=== PATIENT | female | born 1970 | race Hispanic/Latino ===

== ENCOUNTER 2021-08-08 17:35 | Emergency (ER) | payer MEDICAID ==
[~2021-08-08 17:35] MED LIST: BISA10SU22 RC; BISA5TAB12 PO; DOCU-282 PO; GABA-529 PO; LEVO750T46 PO; LORA-699 PO; LORA1TAB3 PO; MELA10CA2 PO; METO25TA6 PO; MIRALAX PO; PANT20TA PO; TRAM50TA4 PO; ZOLP10TA2 PO
[2021-08-08 19:30] VITALS: BP 148/89
[2021-08-08 20:10] LABS: APPEARANCE,URINE CLOUDY (CLEAR); BILIRUBIN,URINE NEGATIVE (NEGATIVE); COLOR,URINE YELLOW (YELLOW); GLUCOSE, URINE (UA) NEGATIVE (NEGATIVE); KETONES,URINE NEGATIVE (NEGATIVE); LEUKOCYTE ESTERASE ,URINE SMALL (NEGATIVE); NITRATE,URINE POSITIVE (NEGATIVE); OCCULT BLOOD,URINE LARGE (NEGATIVE); PROTEIN,URINE 30 mg/dL (NEGATIVE); UROBILINOGEN,URINE 0.2 mg/dL (0.2-1.0)
[2021-08-08] MEDS ORDERED: CEPH500B PO (20:18)
[2021-08-08 20:19] LABS: AMORPHOUS SEDIMENT,UR Few /LPF (None Seen); BACTERIA,URINE Moderate /HPF (None Seen); RBC,URINE 26-50 /HPF (0-1); SQUAMOUS EPITHELIAL CELL,UR Few /HPF (0-2)
[2021-08-08] MEDS ORDERED: CEFTRIAXONE 1G VIAL IM ONE (20:30)
[2021-08-08] MEDS ORDERED: LIDOCAINE HCL-MPF 1% 2ML VIAL ONE (20:33)
== END 2021-08-08 22:38 | disposition home or self-care (01) ==
LOC: EDH 17:35
DX: T83.038A Leakage of other urinary catheter, initial encounter (principal); N39.0 Urinary tract infection, site not specified; I10 Essential (primary) hypertension; K21.9 Gastro-esophageal reflux disease without esophagitis; F41.9 Anxiety disorder, unspecified; Z88.5 Allergy status to narcotic agent; Z79.899 Other long term (current) drug therapy; Y84.6 Urinary catheterization as the cause of abnormal reaction of the patient, or of later complication, without mention of misadventure at the time of the procedure; Y99.8 Other external cause status
CPT/HCPCS: 51702; 81001; 87077; 87088; 87186; 96372; 99284; J0696; J3490

== ENCOUNTER → 2022-10-27 | Outpatient (CLI) | payer MEDICAID ==
[~2022-10-27] MED LIST changes: -BISA10SU22 RC; -BISA5TAB12 PO; -GABA-529 PO; +GABA600T10 PO; +LEVO-70 PO; -LEVO750T46 PO; -LORA-699 PO; -LORA1TAB3 PO; -MELA10CA2 PO; -PANT20TA PO; +TRAZ-185 PO; -ZOLP10TA2 PO
== END | disposition home or self-care (01) ==
LOC: RAH 16:39
PROVIDERS: ATTEND Pain Medicine Interventional Pain Medicine
DX: M43.27 Fusion of spine, lumbosacral region (principal); M47.817 Spondylosis without myelopathy or radiculopathy, lumbosacral region; Z90.49 Acquired absence of other specified parts of digestive tract
CPT/HCPCS: 72100

== ENCOUNTER 2022-12-18 12:53 | Emergency (ER) | payer MEDICAID ==
[~2022-12-18] VITALS: Ht 147.3 cm; Wt 72.6 kg
[2022-12-18 14:10] VITALS: BP 122/61
[2022-12-18 16:06] LABS: APPEARANCE,URINE CLOUDY (CLEAR); BACTERIA,URINE FEW /HPF (None Seen); BILIRUBIN,URINE NEGATIVE (NEGATIVE); COLOR,URINE COLORLESS (YELLOW); GLUCOSE, URINE (UA) NEGATIVE (NEGATIVE); KETONES,URINE NEGATIVE (NEGATIVE); LEUKOCYTE ESTERASE ,URINE 250 Leu/uL (NEGATIVE); MUCUS,URINE RARE LPF (None Seen); NITRATE,URINE NEGATIVE (NEGATIVE); OCCULT BLOOD,URINE LARGE (NEGATIVE); OTHER CASTS, URINE 2 /LPF (None Seen); PH,URINE 5.5 (5.0-8.0); PROTEIN,URINE 70 mg/dL (NEGATIVE); RBC,URINE 51-100 /HPF (0-1); SQUAMOUS EPITHELIAL CELL,UR FEW /HPF (0-2); UROBILINOGEN,URINE 0.2 mg/dL (0.2-1.0); WBC,URINE 26-50 /HPF (0-1)
[2022-12-18] MEDS ORDERED: LEVO-70 PO (16:23)
[2022-12-18] MEDS ORDERED: LEVOFLOXACIN 500 MG TABLET PO SCH (16:30)
== END 2022-12-18 17:30 | disposition home or self-care (01) ==
LOC: EDH 12:53
DX: T83.511A Infection and inflammatory reaction due to indwelling urethral catheter, initial encounter (principal); N39.0 Urinary tract infection, site not specified; I10 Essential (primary) hypertension; K21.9 Gastro-esophageal reflux disease without esophagitis; M19.90 Unspecified osteoarthritis, unspecified site; F41.9 Anxiety disorder, unspecified; Z88.8 Allergy status to other drugs, medicaments and biological substances; Z79.899 Other long term (current) drug therapy
CPT/HCPCS: 81001; 87077; 87088; 87186

== ENCOUNTER 2022-12-31 23:20 | Emergency (ER) | payer MEDICAID ==
[~2022-12-31] VITALS: Ht 139.7 cm; Wt 81.6 kg
[2023-01-01 00:56] VITALS: BP 136/80; PULSE 84; RESP 16
[2023-01-04] MEDS ORDERED: NITR100C4 PO (19:18)
== END 2023-01-01 00:57 | disposition home or self-care (01) ==
LOC: EDH 23:20
DX: N31.9 Neuromuscular dysfunction of bladder, unspecified (principal); I10 Essential (primary) hypertension; G82.20 Paraplegia, unspecified; Z44.8 Encounter for fitting and adjustment of other external prosthetic devices; Z79.899 Other long term (current) drug therapy; Z88.1 Allergy status to other antibiotic agents; Z88.5 Allergy status to narcotic agent; Z98.890 Other specified postprocedural states

== ENCOUNTER 2024-04-29 06:43 | Day surgery (SDC) | payer MEDICAID ==
[2024-04-29] VITALS (10 sets, daily range): BP systolic 105–154; BP diastolic 51–75; PULSE 71–81; RESP 15–18; TEMP 96–97.8
[~2024-04-29 06:43] MED LIST changes: -DOCU-282 PO; +GABA-1405 PO; -GABA600T10 PO; +INSU100V45 SQ; -LEVO-70 PO; +METO-391 PO; -METO25TA6 PO; -MIRALAX PO; -TRAM50TA4 PO
[2024-04-29] MEDS: 0.9%NACL 1000ML 1,000 ML IV ONE (07:41)
[2024-04-29] MEDS ORDERED: proPOFol 10 MG/ML 20ML VIAL IV ONE (09:25)
--- NOTE | 2024-04-29 10:49 | NUR ---
Patient aox4. Denies c/o pain or discomfort. Voiced understanding to Colonoscopy precautions and follow up expectations. Chronic overton patent to gravity drainage. Dark gold clear urne output. PIV discontinued with catheter tip intact. Full and complete Discharge instructions given to Patient and Family. All questions answered. W/C to POV with Family to Home.
== END 2024-04-29 11:00 | disposition home or self-care (01) ==
LOC: ENDO 06:43 → DAH 06:43 → ENDO 11:00
PROVIDERS: ATTEND Internal Medicine Gastroenterology
DX: R19.5 Other fecal abnormalities (principal); D12.2 Benign neoplasm of ascending colon; K62.1 Rectal polyp; K57.30 Diverticulosis of large intestine without perforation or abscess without bleeding; I10 Essential (primary) hypertension; E78.00 Pure hypercholesterolemia, unspecified; F41.9 Anxiety disorder, unspecified; F32.A Depression, unspecified; M19.90 Unspecified osteoarthritis, unspecified site; K59.00 Constipation, unspecified; Z88.1 Allergy status to other antibiotic agents; Z88.5 Allergy status to narcotic agent; Z79.899 Other long term (current) drug therapy
CPT/HCPCS: 45380; 45385; 82948 ×2; J7030; J2704; A4620; A4215 ×2; A4223; A4657; A4222; A4221; A4663; A4606; J3490

== ENCOUNTER 2024-08-27 23:38 | Inpatient (IN) | payer MEDICAID ==
[~2024-08-27] VITALS: Ht 147.3 cm; Wt 88.2 kg
--- NOTE | 2024-08-27 23:57 | ERN ---
ED Note History of Present Illness Stated Complaint: SUPRAPUBIC CATH PROBLEMS Chief Complaint: Urinary Catheter Problems Time Seen by MD: 23:50 Dictation: This is a 54-year-old female with known history of achondroplasia spinal injury and paraplegia has had a suprapubic catheter for a long time. She started having problems where it was malfunctioning and yesterday she was instructed to go to [place] where her urologist is. They flush the suprapubic and basically asked her to keep flushing it and she returned to [place]. She experienced the same issues again this morning and she started feeling really pressure and lower abdominal discomfort and hence came to the ER for further evaluation No hematuria no fever chills or rigors. She denied hematuria or pyuria. She reports a lower abdominal pain as a as pressure and cramping. She has not had much urine output. Temperature 98 pulse 97 respirations 16 blood pressure 128/77 with a pulse oximetry of 98% on room air Her chronic medical problems include diabetes mellitus, hypertension, recurrent UTIs, indwelling suprapubic catheter, history of paraplegia and spinal injury, achondroplasia Allergies: Coded Allergies: ceftriaxone (Unverified Allergy, Unknown, SWELLING, 06/16/22) codeine (Unverified Allergy, Unknown, NAUSEA/VOMITING, 06/16/22) DIZZINESS Home Meds Reported Medications Insulin Lispro (Insulin Lispro) 100 Unit/Ml Vial, 20-25 UNIT SQ DAILY, VIAL 04/28/24 Metoprolol Succinate (Metoprolol Succinate) 50 Mg Tab.er.24h, 50 MG PO BID, TAB 04/28/24 Trazodone HCl (Trazodone HCl) 50 Mg Tablet, 50 MG PO HS for SLEEP, TAB 06/16/22 Gabapentin (Gabapentin) 600 Mg Tablet, 300 MG PO TID, TAB 06/16/22 Past Medical History Past Medical History: Diabetes-Type II, Hypertension, UTI, Other Additional Past Medical Hx: PARAPLEGIA, SPINAL INJURY achondroplasia Surgical History: Other Surgical History Other: BACK SURGERY Family History: Negative Social History: Negative RN Note Reviewed/Agreed w/PFSH: Yes Review of System Dictation Constitutional: Negative for fever,chills, and weight loss Eyes: Negative for injury, pain,redness, and discharge ENT: Negative for injury,pain or swelling Cardiovascular: Negative for chest pain, palpitations, and edema Respiratory: Negative for shortness of breath, cough, and wheezing, Abdomen/GI: Negative for abdominal pain, nausea, vomiting, diarrhea, and constipation Back: Negative for injury and pain : Negative for injury, bleeding and discharge hypogastric area pain and pr essure MS/Extremity: Negative for injury and deformity Skin: Negative for rash, and discoloration Neuro: Negative for headache, weakness, numbness, tingling, and seizure Psych: Negative for suicide ideation, homicidal ideation, and hallucinations Initial Vital Sign VS Vital Signs Date Time Temp Pulse Resp B/P (MAP) Pulse Ox O2 Delivery O2 Flow Rate FiO2 08/27/24 23:40 98.1 97 16 128/77 98 Room Air 0 Physical Exam Dictation General: awake, alert, NAD obese female Head/Face: Normocephalic, atraumatic Eyes: PERRL, EOMI, vision at baseline ENT: oral cavity clear, TMs clear, no signs of infection Neck: Trachea midline, supple, no nuchal rigidity Cardiovascular: RRR, normal S1/S2, No MRGs, no JVD Respiratory: CTAB, no respiratory distress, No rales or wheezes Abdomen: Soft, non-tender, non-distended, normal bowel sounds, no guarding or rebound. Suprapubic catheter in place with small amounts of yellow urine Skin: Warm, dry, normal turgor, no rash MS/Extremity: Pulses equal, no cyanosis, neurovascular intact, FROM Neuro: COAx4, GCS 15, strength 5/5, CN 2-12 intact, normal cerebellar exam, normal gait, Psych: Normal behavior, mood, and affect normal Extremities-trace edema without any palpable cords, Homans sign is negative Results (Laboratory/Radiology) Laboratory/Radiology Laboratory Tests Test 08/28/24 02:27 White Blood Count 9.4 K/uL (4.8-10.8) Red Blood Count 4.41 MIL/uL (4.00-5.50) Hemoglobin 12.6 g/dL (12.0-16.0) Hematocrit 38.5 % (36-48) Mean Corpuscular Volume 87.3 fL (79-99) Mean Corpuscular Hemoglobin 28.6 pg (27.0-33.0) Mean Corpuscular Hemoglobin Concent 32.7 g/dL (32.0-36.0) Red Cell Distribution Width 14.7 % (11.0-15.5) Platelet Count 207 K/uL (130-400) Mean Platelet Volume 10.7 fL (7.5-10.5) H Immature Granulocyte % (Auto) 0.2 % (0-1) Neutrophils (%) (Auto) 68.9 % (40.0-77.0) Lymphocytes (%) (Auto) 19.8 % (21.0-51.0) L Monocytes (%) (Auto) 7.3 % (3.0-13.0) Eosinophils (%) (Auto) 3.5 % (0.0-8.0) Basophils (%) (Auto) 0.3 % (0.0-5.0) Neutrophils # (Auto) 6.5 K/uL (1.8-7.7) Lymphocytes # (Auto) 1.9 K/uL (1.0-4.8) Monocytes # (Auto) 0.7 K/uL (0.1-1.0) Eosinophils # (Auto) 0.33 K/uL (0.00-0.70) Basophils # (Auto) 0.03 K/uL (0.00-0.20) Absolute Immature Granulocyte (auto 0.02 K/uL (0-1) Nucleated Red Blood Cells 0.0 % (0.0-0.19) Sodium Level 141 mmol/L (136-145) Potassium Level 3.8 mmol/L (3.5-5.1) Chloride Level 107 mmol/L (101-111) Carbon Dioxide Level 28 mmol/L (21-32) Blood Urea Nitrogen 18 mg/dL (7-18) Creatinine 0.7 mg/dL (0.5-1.0) Glomerular Filtration Rate Calc 103 mL/min (>90) Random Glucose 106 mg/dL (70-105) H Total Calcium 8.2 mg/dL (8.5-10.1) L Human Chorionic Gonadotropin, Quant 4 mIU/mL (0-5) Labs Reviewed?: Yes ED Course ED Course Orders Procedure Category Date Status Time Cbc With Differential LAB 08/28/24 Complete 01:24 Basic Metabolic Panel LAB 08/28/24 Complete 01:24 Hcg,Quantitative LAB 08/28/24 Complete 01:24 Urinalysis Profile LAB 08/28/24 Logged 01:24 Morphine 4mg Syg PHA 08/28/24 Complete (Morphine 4mg Syg) 01:30 0.9%Nacl 1000ml (Ns PHA 08/28/24 Complete 1000ml) 01:30 Ct Abdomen/Pelvis W/O CT 08/28/24 Taken Contrast 01:26 Edm Admit Bridge Order ADM 08/28/24 Transmitted 04:13 Current Medications Medications (Trade) Dose Ordered Sig/Elsy Route PRN Reason Start Time Stop Time Status Last Admin Dose Admin Morphine Sulfate (morPHINE 4MG SYG) 4 mg ONCE ONCE IVP 08/28/24 01:30 08/28/24 01:33 DC 08/28/24 01:36 Sodium Chloride 1,000 ml @ 0 mls/hr ONCE ONCE IV 08/28/24 01:30 08/28/24 01:31 DC 08/28/24 01:36 Vital Signs Date Time Temp Pulse Resp B/P (MAP) Pulse Ox O2 Delivery O2 Flow Rate FiO2 08/27/24 23:40 98.1 97 16 128/77 98 Room Air 0 We will perform diagnostic labs, advanced imaging and administer medications according to the patient's complaint. Once the results are available, will review and personally interpreted the labs to rule out any acute life-thre atening emergency the trach require immediate intervention and treatment. I will then re-evaluate the patient after treatment and diagnostic exams have return to determine whether the patient requires any further testing, can safely be discharged home or need further admission to hospital for additional treatment and evaluation. 1:00 a.m.-suprapubic catheter was flushed easily with small amount of saline. Not much of returned from the suprapubic catheter. ER was over flowing with no rooms or space available and hence there has been a delay in care 2:45 a.m.-CT scan of the abdomen and pelvis for verifying the positioning of the suprapubic catheter and any intrapelvic pathology was requested. CBC and other labs are also pending at this time 2:[address] scan of the abdomen and pelvis without contrast showed fecal impaction, urinary bladder is collapsed around the suprapubic catheter balloon, cholecystectomy clips, appendectomy suture, osteopenia with a L5-S1 fused interv ertebral cage and laminectomies from L1-S1 no perforation or intrapelvic fluid. 3:41 a.m. BNP 7 is within normal limits As patient has no urine output aggressive hydration is being done patient will also need disimpaction and bowel regimen. Recommended admission to the hospital and further management and close monitoring of electrolytes as well as Urology consultation to assist with suprapubic catheter. Patient is agreeable Patient accepted by vinicio mid-level provider for hospitalist group for further management Medical Decision Making MDM MDM: Differential diagnosis: Malfunctioning suprapubic catheter-possibilities include sediment, obstructive uropathy, malpositioning of the catheter, UTI Rationale: Tests considered and ordered secondary to shared decision making include: labs, ECG and radiology Previous outside records reviewed: Old ER visits. Risk of complication and/or morbidity or mortality of patient management: None Medications-Per medication reconciliation Need for hospitalization: Patient does meet criteria for hospitalization. Need for emergency major/minor surgery: No There are no social concerns with this patient. Prescription drug management Prescriptions will include symptomatic care Patient's prior external medical records from other ER visits were reviewed by me as indicated. Prior testing and results from previous visits were reviewed. Prior tests were taken into account with medical decision making and resource utilization, independent historian/historians were used to obtain complete medical history. I independently interpreted the test that were performed, results were reviewed by me and considered findings on radiology if ordered. Medical management and examination interpretation discussions were had by me with other qualified healthcare professionals as indicated for the patient's care. Problem List Problem List: (1) Malfunction of indwelling urinary catheter (2) Neurogenic bladder (3) Fecal impaction in rectum DX & DISP Disposition: Inpatient Decision to Admit Time: 03:42 Departure Impression: Primary Impression: Malfunction of indwelling urinary catheter Additional Impressions: Neurogenic bladder, Fecal impaction in rectum Condition: Stable Additional Instructions: Patient was informed of all the diagnostic labs and procedures conducted in the emergency room today and demonstrated understanding of the results. I personally reviewed and interpreted all the diagnostic exams performed in the ER today. The patient will be admitted to the hospital for further treatment and evaluation. Disposition-admit to facility Condition-stable/guarded Course-uncertain at this time Pain status-decreased Assessment-exam unchanged Admission Certification- I certify that the patients status is appropriate and is based on my best clinical judgment and the patient's condition as documented in the medical records Referrals: NEELAM VELASCO DO (PCP) SADE THURMAN MD Aug 27, 2024 23:57
[2024-08-28] MEDS: 0.9%NACL 1000ML 1,000 ML IV ONE (01:36)
[2024-08-28] MEDS: morPHINE 4 MG SYG IVP ONE (01:36)
--- NOTE | 2024-08-28 02:00 | NUR ---
taken to ct scan
[2024-08-28 02:43] LABS: BASOPHILS # (AUTO) 0.03 K/uL (0.00-0.20); BASOPHILS % (AUTO) 0.3 % (0.0-5.0); EOSINOPHILS # (AUTO) 0.33 K/uL (0.00-0.70); EOSINOPHILS % (AUTO) 3.5 % (0.0-8.0); HEMATOCRIT 38.5 % (36-48); IMMATURE GRANULOCYTE ABSOLUTE 0.02 K/uL (0-1); LYMPHOCYTES # (AUTO) 1.9 K/uL (1.0-4.8); LYMPHOCYTES % (AUTO) 19.8 % (21.0-51.0); MEAN CORPUSCULAR HEMOGLOBIN 28.6 pg (27.0-33.0); MEAN CORPUSCULAR HGB CONC 32.7 g/dL (32.0-36.0); MEAN CORPUSCULAR VOLUME 87.3 fL (79-99); MONOCYTES # (AUTO) 0.7 K/uL (0.1-1.0); MONOCYTES % (AUTO) 7.3 % (3.0-13.0); NEUTROPHILS # (AUTO) 6.5 K/uL (1.8-7.7); NEUTROPHILS % (AUTO) 68.9 % (40.0-77.0); PLATELET COUNT (AUTO) 207 K/uL (130-400); RED BLOOD CELL COUNT(AUTO) 4.41 MIL/uL (4.00-5.50); RED CELL DISTRIBUTION WIDTH 14.7 % (11.0-15.5); WHITE BLOOD COUNT (AUTO) 9.4 K/uL (4.8-10.8)
[2024-08-28 03:06] LABS: CREATININE 0.7 mg/dL (0.5-1.0); POTASSIUM 3.8 mmol/L (3.5-5.1)
--- NOTE | 2024-08-28 04:15 | HP ---
[facility] HISTORY AND PHYSICAL Date of Service: Aug 28, 2024 Time of Service: 04:15 PCP: Clint Velasquez HISTORY OF PRESENT ILLNESS: This is a 54-year-old female with past medical history of diabetes, hypertension urinary tract infection, achondroplasia, paraplegia and spinal injury was brought by EMS to the ED for complaints of malfunctioning suprapubic catheter which started Last Sunday 6 days ago and she went to see her Urologist in [place] on Sunday where her suprapubic cath was flushed and told her to keep flushing it and she came back home to [place] and upon arrival at home her Suprapubic catheter stopped draining again and she was voiding thru her urethra now and she also feels some pressure around her suprapubic area so she decided to come to the ED for evaluation.Upon arrival to the ER suprapubic catheter was flushed and not much returned came out as per ER report. Seen and examined patient in the ER awake,alert and coherent. Patient appears comfortable. Patient denies fever, chills, nausea, vomiting, chest pain and shortness of breaths. Suprapubic catheter draining yellow urine to the flow of gravity upon my evaluation. Latest vital signs temperature 97.9, heart rate 99, blood pressure 155/88 saturation 100% on room air. Labs: CBC is unremar kable. Glucose 106 total calcium 8.2 the rest of the chemistry is normal. There is a CT abdomen and pelvis that was done in the ER official result is still pending at this time. While in the ER patient received 1 L NS bolus and 4 mg of morphine IV. We will admit patient for further medical management. REVIEW OF SYSTEMS CONSTITUTIONAL: Denies fevers, chills, or night sweats. No unintentional weight loss reported. NEUROLOGICAL: Denies headache, amaurosis fugax, motor weakness, sensory deficit, vertigo/spinning sensation, gait abnormalities, or tremors. ENT: No hearing loss, otalgia, otorrhea, rhinitis, rhinorrhea, hoarseness, or sore throat. CARDIOVASCULAR: Denies any exertional angina, dyspnea on exertion, orthopnea, paroxysmal nocturnal dyspnea, palpitations, life-threatening arrhythmias, claudication. PULMONARY: Denies any shortness of breath, cough, phlegm/sputum, hemoptysis, pleuritic chest pain. SLEEP: Denies morning headaches, daytime somnolence or napping. Denies difficulty falling asleep, staying asleep, waking from sleep. Denies knowledge of snoring. GASTROINTESTINAL: Lower abdominal pain Denies any type of dysphagia to either liquids or solids. Denies nausea, vomiting, pyrosis, early satiety,diarrhea, constipation, or changes in stool consistency or caliber. Denies coffee-ground emesis, hematemesis, hematochezia, or melanotic stools. GENITOURINARY: Denies frequency, urgency, nocturia, hematuria or incontinence (Storage/Irritative symptoms.) straining to void, urinary intermittency or hesitancy, splitting of the voiding stream, terminal dribbling. ENDOCRINOLOGIC: Denies polyuria, polydipsia, polyphagia or heat/cold in tolerances. HEMATOLOGIC: Denies thrombophilia/previous clots, or coagulopathy/bleeding disorders. ONCOLOGIC: Denies personal history of malignancy. DERMATOLOGIC: Denies rashes or pruritus. PSYCHIATRIC: Denies any suicidal or homicidal ideation. Denies hallucinations. PAST MEDICAL HISTORY: [ diabetes, hypertension urinary tract infection, achondroplasia, paraplegia and spinal injury ] PAST SURGICAL HISTORY: [ Back surgery 2016, right knee surgery, tubal ligation ] PAST SOCIAL HISTORY: [ Patient lives with family. Patient is bed-bound. Patient denies alcohol tobacco and recreational drug use] FAMILY HISTORY: [ Hypertension, diabetes and Alzheimer's disease ] Coded Allergies: ceftriaxone (Unverified Allergy, Unknown, SWELLING, 06/16/22) codeine (Unverified Allergy, Unknown, NAUSEA/VOMITING, 06/16/22) DIZZINESS PHYSICAL EXAM GENERAL APPEARANCE: The patient is awake, alert, and oriented, in no acute cardiopulmonary distress. NEUROLOGICAL: Cranial nerves II-XII grossly intact. Motor is 5/5 in bilateral upper and lower extremities proximal to distal. No sensory deficits. HEENT: Face is symmetric. Pupils are equal and reactive. Extraocular movements are intact. NECK: Supple. No JVD. No thyromegaly. No submental, submandibular, pre- /postauricular, occipital or supraclavicular lymphadenopathy. CHEST: Normal chest expansion. No Telemetry. LUNGS: Absence of any rales, rhonchi or any wheezing. CARDIOVASCULAR: Regular. S1 and S2 normal. No appreciable rubs, murmurs or gallops. ABDOMEN: Soft, nontender, and nondistended. There is no rebound, voluntary guarding, or rigidity. : Deferred. Positive suprapubic catheter. EXTREMITIES: Non-edematous and not cyanotic. No clubbing. Good capillary refill. SKIN: No skin breakdown. Vital Sign (Last 24 Hours) 08/27/24 23:40 Temp 98.1 Pulse 97 Resp 16 B/P (MAP) 128/77 Pulse Ox 98 O2 Delivery Room Air O2 Flow Rate 0 LABS: Laboratory: Test 08/28/24 02:27 Range/Units White Blood Count 9.4 4.8-10.8 K/uL Red Blood Count 4.41 4.00-5.50 MIL/uL Hemoglobin 12.6 12.0-16.0 g/dL Hematocrit 38.5 36-48 % Mean Corpuscular Volume 87.3 79-99 fL Mean Corpuscular Hemoglobin 28.6 27.0-33.0 pg Mean Corpuscular Hemoglobin Concent 32.7 32.0-36.0 g/dL Red Cell Distribution Width 14.7 11.0-15.5 % Platelet Count 207 130-400 K/uL Mean Platelet Volume 10.7 H 7.5-10.5 fL Immature Granulocyte % (Auto) 0.2 0-1 % Neutrophils (%) (Auto) 68.9 40.0-77.0 % Lymphocytes (%) (Auto) 19.8 L 21.0-51.0 % Monocytes (%) (Auto) 7.3 3.0-13.0 % Eosinophils (%) (Auto) 3.5 0.0-8.0 % Basophils (%) (Auto) 0.3 0.0-5.0 % Neutrophils # (Auto) 6.5 1.8-7.7 K/uL Lymphocytes # (Auto) 1.9 1.0-4.8 K/uL Monocytes # (Auto) 0.7 0.1-1.0 K/uL Eosinophils # (Auto) 0.33 0.00-0.70 K/uL Basophils # (Auto) 0.03 0.00-0.20 K/uL Absolute Immature Granulocyte (auto 0.02 0-1 K/uL Nucleated Red Blood Cells 0.0 0.0-0.19 % Sodium Level 141 136-145 mmol/L Potassium Level 3.8 3.5-5.1 mmol/L Chloride Level 107 101-111 mmol/L Carbon Dioxide Level 28 21-32 mmol/L Blood Urea Nitrogen 18 7-18 mg/dL Creatinine 0.7 0.5-1.0 mg/dL Glomerular Filtration Rate Calc 103 >90 mL/min Random Glucose 106 H 70-105 mg/dL Total Calcium 8.2 L 8.5-10.1 mg/dL Human Chorionic Gonadotropin, Quant 4 0-5 mIU/mL DIAGNOSTICS / RADIOLOGY: [ ] ASSESSMENT: Suprapubic catheter malfunctioning POA Fecal impaction POA Neurogenic bladder POA Paraplegia POA Hypertension POA Obesity POA PLAN: We will admit patient in medical surgical We will start on GI soft diet We will start NS @ 75 ml / hr x1 bag and re evaluate We will start on Famotidine 20 mg IV bid for GI prophylaxis We will replace electrolytes as needed per protocol We will start on insulin sliding scale AC & HS with hypoglycemia protocol We will add prn medication for fever,pain, nausea and vomiting We will reconcile home meds once medlist available We will seek Urology consultation We will seek gastroenterology consultation We will request labs in am Further orders to follow depending on above results Case discussed with attending physician and came up with above treatment and plan of care. ADVANCED CARE PLANNING 1. Which of the following were discussed? Hospice Care - No Therapeutic options - Yes Advance Directives - No Other discussions - 2. Discussed with who? Patient 3. Voluntary nature of this service was explained to the patient? Yes 4. Amount of time spent - __19 5. Reviewed by Physician? (if this service was performed by NPP) Yes Patient seen and examined by me. Agree with note by [employer] SEE ADDITIONAL ORDERS PER CHART DISCUSSED WITH NURSING STAFF RAINE RODGERSP Aug 28, 2024 04:15
[2024-08-28] MEDS ORDERED: acetaMINOPHEN 325 MG TAB PO PRN (04:30)
[2024-08-28] MEDS: 0.9%NACL 1000ML 1,000 ML IV SCH (04:44)
--- NOTE | 2024-08-28 05:21 | NUR ---
REPORT CALLED TO DESIRAE HUBBARD
[2024-08-28 05:25] VITALS: BP 147/75; PULSE 99; RESP 18; TEMP 97.6
[2024-08-28 06:13] LABS: HEMOGLOBIN A1C 6.1 % (4.0-6.0)
[2024-08-28] MEDS: ondanSETRON 4MG INJ IV PRN (06:21)
[2024-08-28 06:23] LABS: BILIRUBIN,DIRECT 0.1 mg/dL (0.0-0.3); BILIRUBIN,TOTAL 0.3 mg/dL (0.2-1.0); MAGNESIUM 1.8 mg/dL (1.80-2.40)
--- NOTE | 2024-08-28 07:47 | CONS ---
GASTROENTEROLOGY CONSULTATION NOTE Date of Consultation: Aug 28, 2024 Time of Consultation: 07:47 History of Present Illness: Colonoscopy 04/2024 with colon polyps and diverticulosis. Review of Systems: CONSTITUTIONAL: No malaise or change in sensation of wellbeing. ENMT: No rhinorrhea, otorrhea, sinus pain, ear ache. CARDIOVASCULAR: No angina, palpitations, orthopnea or paroxysmal dyspnea. RESPIRATORY: No SOB. GASTROINTESTINAL: No abdominal pain, nausea, vomiting, diarrhea, hematemesis, melena or change in the patient's habitual bowel movements consistency/number. GENITOURINARY: No dysuria, hematuria or change in bladder continence. MUSCULOSKELETAL: No new muscle pain or decrease in muscular strength. No new joint swelling, redness or tenderness. SKIN: No new rash. Past Medical History: [ ] Past Surgical History: [ ] Past Social History: [ ] Family History: [ ] Coded Allergies: ceftriaxone (Unverified Allergy, Unknown, SWELLING, 06/16/22) codeine (Unverified Allergy, Unknown, NAUSEA/VOMITING, 06/16/22) DIZZINESS Physical Exam: GEN: Awake, alert, oriented in person, time and place, and in no acute distress. HEENT: No sinus tenderness. Tympanic membranes were not examined. No rhinorrhea. Oral pharyngeal mucosa is pink, moist and within normal limits. Neck is supple with no cervical lymphadenopathy, thyromegaly or JVD. CHEST: Inspection, palpation and percussion of the chest were unremarkable. Lung auscultation revealed normal breath sounds bilaterally. CARDIAC: PMI is within normal limits. Heart sounds are regular. Normal S1, S2. No gallop or murmur. ABD: Soft, non-tender and not distended. No peritoneal signs on palpation. No organomegaly. Normal bowel sounds. EXT: No cyanosis or clubbing. No edema. SKIN: Intact. No rashes. JOINTS: No evidence of synovitis or acute arthritis. NEURO: Alert and oriented to name, place and person. Cranial nerve examination is unremarkable. No focal motor deficits. Normal speech. Gait is normal. Strength is normal. Vital Sign (Last 24 Hours) 08/28/24 08/28/24 05:25 06:00 Temp 97.5 Pulse 99 Resp 18 B/P (MAP) 147/75 Pulse Ox 96 O2 Delivery Room Air* O2 Flow Rate 0 FiO2 21 Laboratory: [ ] Laboratory: Test 08/28/24 02:27 Range/Units White Blood Count 9.4 4.8-10.8 K/uL Red Blood Count 4.41 4.00-5.50 MIL/uL Hemoglobin 12.6 12.0-16.0 g/dL Hematocrit 38.5 36-48 % Mean Corpuscular Volume 87.3 79-99 fL Mean Corpuscular Hemoglobin 28.6 27.0-33.0 pg Mean Corpuscular Hemoglobin Concent 32.7 32.0-36.0 g/dL Red Cell Distribution Width 14.7 11.0-15.5 % Platelet Count 207 130-400 K/uL Mean Platelet Volume 10.7 H 7.5-10.5 fL Immature Granulocyte % (Auto) 0.2 0-1 % Neutrophils (%) (Auto) 68.9 40.0-77.0 % Lymphocytes (%) (Auto) 19.8 L 21.0-51.0 % Monocytes (%) (Auto) 7.3 3.0-13.0 % Eosinophils (%) (Auto) 3.5 0.0-8.0 % Basophils (%) (Auto) 0.3 0.0-5.0 % Neutrophils # (Auto) 6.5 1.8-7.7 K/uL Lymphocytes # (Auto) 1.9 1.0-4.8 K/uL Monocytes # (Auto) 0.7 0.1-1.0 K/uL Eosinophils # (Auto) 0.33 0.00-0.70 K/uL Basophils # (Auto) 0.03 0.00-0.20 K/uL Absolute Immature Granulocyte (auto 0.02 0-1 K/uL Nucleated Red Blood Cells 0.0 0.0-0.19 % Sodium Level 141 136-145 mmol/L Potassium Level 3.8 3.5-5.1 mmol/L Chloride Level 107 101-111 mmol/L Carbon Dioxide Level 28 21-32 mmol/L Blood Urea Nitrogen 18 7-18 mg/dL Creatinine 0.7 0.5-1.0 mg/dL Glomerular Filtration Rate Calc 103 >90 mL/min Random Glucose 106 H 70-105 mg/dL Hemoglobin A1c 6.1 H 4.0-6.0 % Estimated Average Glucose (eAG) 128 H 70-126 mg/dL Total Calcium 8.2 L 8.5-10.1 mg/dL Magnesium Level 1.80 1.80-2.40 mg/dL Total Bilirubin 0.3 0.2-1.0 mg/dL Direct Bilirubin 0.1 0.0-0.3 mg/dL Aspartate Amino Transf (AST/SGOT) 62 H 10-37 U/L Alanine Aminotransferase (ALT/SGPT) 44 12-78 U/L Alkaline Phosphatase 120 50-136 U/L Total Protein 7.0 6.0-8.3 g/dL Albumin 3.0 L 3.5-5.0 g/dL Human Chorionic Gonadotropin, Quant 4 0-5 mIU/mL Current Medications Medications (Trade) Dose Ordered Sig/Elsy Route PRN Reason Start Time Stop Time Status Last Admin Dose Admin Acetaminophen (TYLenol 325MG TAB) 650 mg Q4H PRN PO MILD PAIN (1-3) 08/28/24 04:30 09/27/24 04:29 Acetaminophen (TYLenol 325MG TAB) 650 mg Q6H PRN PO TEMPERATURE GREATER THAN 101.5 08/28/24 04:30 09/27/24 04:29 Famotidine (Pepcid 20mg Vial) 20 mg BID IV 08/28/24 09:00 09/27/24 08:59 Ondansetron HCl (zoFRAN 4MG INJ) 4 mg Q6H PRN IV NAUSEA/VOMITING 08/28/24 04:30 09/27/24 04:29 08/28/24 06:21 4 MG Sodium Chloride 1,000 ml @ 75 mls/hr [id number] IV 08/28/24 04:30 09/27/24 04:29 08/28/24 04:44 75 MLS/HR Diagnostics / Radiology: [COPY/PASTE HERE IF NO REPORTS PLEASE DELETE SECTION] Assessment: [ ] Plan: [ ] BROOKLYNN MUIR [facility] Aug 28, 2024 07:47
[2024-08-28 08:00] VITALS: BP 139/87; PULSE 104; RESP 18; TEMP 97.9; O2SAT 95
[2024-08-28] MEDS: FAMOTIDINE 20MG VIAL IV SCH (08:17)
--- NOTE | 2024-08-28 08:25 | HMCIMG ---
Exam Type: CT ABDOMEN/PELVIS W/O CONTRAST Clinical Information: supra public in place. malfunctioning lower abdominal pain Comparison: None CT Dose Index (CTDI): 10.20 mGy Dose Length Product (DLP): 530.00 total mGy-cm PROTOCOL: Routine noncontrast helical scanning of the abdomen and pelvis was performed at 5mm collimation. Findings: No evidence of nephro or ureterolithiasis is found. No hydronephrosis or ureteral dilatation is seen. The lung bases are clear. The stomach is unremarkable. It shows no wall thickening. No gross ulceration is seen. It is not overly distended. There are no surrounding inflammatory changes. No wall lesions are identified to suggest cancer. The spleen is unremarkable. It is not enlarged. The pancreas shows normal anatomy. It is not fatty replaced. It shows no lesions. The pancreatic duct is not dilated. The gallbladder is unremarkable. It shows no cholelithiasis. The gallbladder wall is normal in thickness. There is no pericholecystic fluid. The is no acute or chronic inflammation noted. The adrenal glands are unremarkable. There is no enlargement. No lesions are noted. The liver is unremarkable. It shows no focal masses. The appendix is not visualized. The small bowel is unremarkable. There is no evidence of dilatation to suggest obstruction. No evidence of adynamic ileus is seen. There is no small bowel wall thickening to suggest enteritis. Abundant fecal matter is noted throughout the colon consistent with constipation. The urinary bladder is unremarkable. There is no wall thickening to suggest tumor or inflammation. There are no intraluminal calculi. There are no diverticula. There is no evidence of chronic bladder outlet obstruction. There is no evidence of urinary bladder distention to suggest urinary retention. Ryan catheter noted within the urinary bladder. The other pelvic structures are unremarkable. Postoperative changes of the lumbosacral spine. IMPRESSION: Constipation. Other findings as described. This study was performed using dose reduction techniques to include automated exposure control and/or adjustment of the mA and/or kV according to patient size.
[2024-08-28] MEDS ORDERED: LISI1TAB53 PO (09:54)
[2024-08-28] MEDS ORDERED: LACT10SO76 PO (09:54)
[2024-08-28] MEDS ORDERED: OXYB5TAB20 PO (09:54)
[2024-08-28] MEDS ORDERED: FERS325 PO (09:54)
[2024-08-28 10:44] LABS: INR 0.94 (0.85-1.15)
[2024-08-28 10:46] LABS: PARTIAL THROMBOPLASTIN TIME 27.8 SEC (26.3-35.5)
[2024-08-28] MEDS: ketOROlac 15MG/ML VIAL (15MG/ML) IV PRN (11:12)
[2024-08-28] MEDS: doCUSate SODIUM 100 MG CAP PO SCH (11:12)
[2024-08-28] MEDS: LACTULOSE 20 GM/30 ML UDCUP PO PRN (11:12)
[2024-08-28] MEDS: metOPROLol sucCINATE 50 MG TAB.SR.24H PO ONE (11:14)
[2024-08-28 12:00] VITALS: BP 136/87; PULSE 90; RESP 18; TEMP 98
[2024-08-28 12:42] LABS: APPEARANCE,URINE CLEAR (CLEAR); BILIRUBIN,URINE NEGATIVE (NEGATIVE); COLOR,URINE COLORLESS (YELLOW); GLUCOSE, URINE (UA) NEGATIVE (NEGATIVE); KETONES,URINE NEGATIVE (NEGATIVE); LEUKOCYTE ESTERASE ,URINE 250 Leu/uL (NEGATIVE); NITRATE,URINE NEGATIVE (NEGATIVE); OCCULT BLOOD,URINE MODERATE (NEGATIVE); PROTEIN,URINE 10 mg/dL (NEGATIVE); UROBILINOGEN,URINE 0.2 mg/dL (0.2-1.0)
[2024-08-28 12:47] LABS: ADD UA MICROSCOPIC YES
[2024-08-28 12:48] LABS: BACTERIA,URINE RARE /HPF (None Seen); MUCUS,URINE RARE LPF (None Seen); SQUAMOUS EPITHELIAL CELL,UR RARE /HPF (0-2); WBC,URINE 26-50 /HPF (0-1); YEAST,URINE BUDDING FEW /HPF (None Seen)
--- NOTE | 2024-08-28 13:18 | NUR ---
D/C PLAN CM spoke to patient regarding d/c planning. Patient reports she lives with friend Christine. States she has provider services to assist with ADLs but unable to recall how many hours. Denies having any home health. States she has a wheelchair and shower chair at home. Plan is to return home to same setting. No needs verbalized. CM to f/u. Addendum: 08/28/24 at 1319 by CHENTE MORALES CM Amended: Links added.
[2024-08-28] MEDS: GABAPENTIN 300 MG CAPSULE PO SCH (14:00)
[2024-08-28] MEDS ORDERED: GABA-529 PO (14:38)
[2024-08-28] MEDS ORDERED: cefTRIAXone 1G VIAL IVPB SCH (15:00)
[2024-08-28 16:00] VITALS: BP 146/78; PULSE 86; RESP 18; TEMP 98.2
[2024-08-28] MEDS: levoFLOXacin 500 MG/D5W 100 ML IV SCH (16:26)
--- NOTE | 2024-08-28 17:59 | NUR ---
FLEET ENEMA ADMINISTERED THE FLEET ENEMA AT 1400. AT 1430 PT HAD LARGE BOWEL MOVEMENT AND FLATUS. PT'S REPORTS PAIN RELIEF AND REDUCED BLOATING.
[2024-08-28 19:00] VITALS: BP 161/74; PULSE 81; RESP 20; TEMP 98
[2024-08-28] MEDS: metOPROLol sucCINATE 50 MG TAB.SR.24H PO SCH (19:46)
[2024-08-28 20:00] VITALS: O2SAT 95
[2024-08-28] MEDS: acetaMINOPHEN 325 MG TAB PO PRN (20:27)
[2024-08-28] MEDS: trAZOdone HCL 50 MG TAB PO SCH (20:29)
--- NOTE | 2024-08-28 21:22 | CONS ---
CONSULTATION NOTE Date of Service: Aug 28, 2024 Reason for Consultation: Mal functioning suprapubic catheter Requesting Physician: Hospitalist [facility] HISTORY OF PRESENT ILLNESS: 54-year-old female with past medical history of diabetes, hypertension urinary tract infection, achondroplasia, paraplegia and spinal injury was brought by EMS to the ED for complaints of malfunctioning suprapubic catheter which started Last Sunday 6 days ago. She has neurogenic bladder, history of achondroplasia but underwent a spinal surgery which left her almost paralyzed/paraplegic. She states she can not walk. There was a time in the past she had a suprapubic catheter for bladder management. At some point that was removed. It is not clear to me how she was being managed bladder pascual after that but recently underwent placement of a new suprapubic catheter August 20, 2024. It was performed at [facility] in [place]. She was discharged back to [place]. She started experiencing difficulty and problems with the catheter noticing that she was getting very wet in her diapers. He drove back over there went to the ER it was flushed out and sent back to [place]. She continued to have the same problems and she came to [facility] Emergency Department. A CT scan that was obtained on admission does show that the catheter was kind of curved within the lumen of the bladder. In addition to that the catheter was tunneled and placed in the suprapubic location whereby is being kinked and compressed by her abdominal pannus. Since admission, the catheter has been draining much better. REVIEW OF SYSTEMS CONSTITUTIONAL: Denies fever, chills, or fatigue. HEAD/FACE: No signs of trauma. EENT: Denies eye pain, blurred vision, double vision, or light sensitivity. RESPIRATORY: Denies shortness of breath, cough, wheezing CARDIOVASCULAR: Denies chest pain, palpitation, syncope GASTROINTESTINAL/ABDOMINAL: Denies abdominal pain, constipation, diarrhea, nausea or vomiting GENITOURINARY: Denies dysuria or hematuria. MUSCULOSKELETAL: Denies joint pain, tenderness, or trauma. INTEGUMENTARY: Denies rash or itchiness NEUROLOGICAL/PSYCH: Denies anxiety, depression, heat or cold intolerance. PAST MEDICAL HISTORY: Achondroplasia Paraplegia Neurogenic bladder PAST SURGICAL HISTORY: Spinal surgery Suprapubic catheter insertion PAST SOCIAL HISTORY: Denies ethanol, drugs and smoking FAMILY HISTORY: Family history is noncontributory to presenting complaint Coded Allergies: ceftriaxone (Unverified Allergy, Unknown, SWELLING, 06/16/22) codeine (Unverified Allergy, Unknown, NAUSEA/VOMITING, 06/16/22) DIZZINESS PHYSICAL EXAM EYES: Anicteric. Pupils equal and reactive. HENT: No oral thrush seen, moist Oral mucosa NECK: Supple, no JVD or thyromegaly. LUNGS: Good air entry. No rales, no rhonchi. CARDIOVASCULAR: S1, S2 regular. No murmur heard. ABDOMEN: Soft, non tender, bowel sounds present, no organomegaly, SP puncture site in the inferior abdomen is clean dry and intact. CENTRAL NERVOUS SYSTEM: Awake, alert, oriented x 3. No focal deficits. SKIN: No rashes, no swelling. LYMPHATICS: No peripheral lymphadenopathy MUSCULOSKELETAL: No joint swelling, erythema or tenderness. EXTREMITIES: No cyanosis or clubbing BACK: No deformity, no pressure ulcer. GENITOURINARY: Genitalia is normal Vital Sign (Last 24 Hours) 08/28/24 08/28/24 08:00 19:00 Temp 98.1 Pulse 81 Resp 20 B/P (MAP) 161/74 Pulse Ox 96 O2 Delivery Room Air O2 Flow Rate 0 FiO2 21 LABS: Laboratory: Test 08/28/24 11:27 08/28/24 02:27 Range/Units Urine Color COLORLESS YELLOW Urine Appearance CLEAR CLEAR Urine pH 6.0 5.0-8.0 Urine Specific [place] 1.011 1.001-1.031 Urine Protein 10 H NEGATIVE mg/dL Urine Glucose (UA) NEGATIVE NEGATIVE mg/dL Urine Ketones NEGATIVE NEGATIVE mg/dL Urine Occult Blood MODERATE H NEGATIVE Urine Nitrate NEGATIVE NEGATIVE Urine Bilirubin NEGATIVE NEGATIVE mg/dL Urine Urobilinogen 0.2 0.2-1.0 mg/dL Urine Leukocyte Esterase 250 H NEGATIVE May/uL Urine RBC 11-25 H 0-1 /HPF Urine WBC 26-50 H 0-1 /HPF Urine Squamous Epithelial Cells RARE 0-2 /HPF Urine Bacteria RARE None Seen /HPF Urine Yeast FEW None Seen /HPF White Blood Count 9.4 4.8-10.8 K/uL Red Blood Count 4.41 4.00-5.50 MIL/uL Hemoglobin 12.6 12.0-16.0 g/dL Hematocrit 38.5 36-48 % Mean Corpuscular Volume 87.3 79-99 fL Mean Corpuscular Hemoglobin 28.6 27.0-33.0 pg Mean Corpuscular Hemoglobin Concent 32.7 32.0-36.0 g/dL Red Cell Distribution Width 14.7 11.0-15.5 % Platelet Count 207 130-400 K/uL Mean Platelet Volume 10.7 H 7.5-10.5 fL Immature Granulocyte % (Auto) 0.2 0-1 % Neutrophils (%) (Auto) 68.9 40.0-77.0 % Lymphocytes (%) (Auto) 19.8 L 21.0-51.0 % Monocytes (%) (Auto) 7.3 3.0-13.0 % Eosinophils (%) (Auto) 3.5 0.0-8.0 % Basophils (%) (Auto) 0.3 0.0-5.0 % Neutrophils # (Auto) 6.5 1.8-7.7 K/uL Lymphocytes # (Auto) 1.9 1.0-4.8 K/uL Monocytes # (Auto) 0.7 0.1-1.0 K/uL Eosinophils # (Auto) 0.33 0.00-0.70 K/uL Basophils # (Auto) 0.03 0.00-0.20 K/uL Absolute Immature Granulocyte (auto 0.02 0-1 K/uL Nucleated Red Blood Cells 0.0 0.0-0.19 % Prothrombin Time 10.0 9.6-11.6 SEC Prothromb Time International Ratio 0.94 0.85-1.15 Activated Partial Thromboplast Time 27.8 26.3-35.5 SEC Sodium Level 141 136-145 mmol/L Potassium Level 3.8 3.5-5.1 mmol/L Chloride Level 107 101-111 mmol/L Carbon Dioxide Level 28 21-32 mmol/L Blood Urea Nitrogen 18 7-18 mg/dL Creatinine 0.7 0.5-1.0 mg/dL Glomerular Filtration Rate Calc 103 >90 mL/min Random Glucose 106 H 70-105 mg/dL Hemoglobin A1c 6.1 H 4.0-6.0 % Estimated Average Glucose (eAG) 128 H 70-126 mg/dL Total Calcium 8.2 L 8.5-10.1 mg/dL Magnesium Level 1.80 1.80-2.40 mg/dL Total Bilirubin 0.3 0.2-1.0 mg/dL Direct Bilirubin 0.1 0.0-0.3 mg/dL Aspartate Amino Transf (AST/SGOT) 62 H 10-37 U/L Alanine Aminotransferase (ALT/SGPT) 44 12-78 U/L Alkaline Phosphatase 120 50-136 U/L Total Protein 7.0 6.0-8.3 g/dL Albumin 3.0 L 3.5-5.0 g/dL Human Chorionic Gonadotropin, Quant 4 0-5 mIU/mL DIAGNOSTICS / RADIOLOGY: CT abdomen and pelvis without contrast shows the placement of a silicone catheter, there is a curvature of the tubing of the catheter intraluminally within the bladder. There was also another curvature of the catheter at the site of exit secondary to compression from abdominal pannus. ASSESSMENT: 54-year-old female with a history of achondroplasia and currently paraplegic, unable to ambulate without a wheelchair, has neurogenic bladder, underwent placement a FA puncture suprapubic catheter in [place] August 20, 2024 PLAN: 1.There are many technical issues with this catheter. It is kinked externally and internally. All of those can be straightened out by simply adjusting and pull in the catheter so that the balloon hugs the superior bladder wall. 2. Patient would need to learn how to flush the catheter as the helps with these issues 3. Discussed with patient expectations from a suprapubic catheter. She has had it before. This is not a natural way of bladder should drain so it is subject to technical issues and drainage troubleshooting. 60 minutes spent to complete a consult, more than half of the time spent in counseling and coordination of care and addressing all questions and concerns post by patient and family member present at bedside. Some time was spent d iscussing with members of her care team. The rest of the time was spent reviewing medical records past and present as well as imaging and laboratory data from this admission. MONSE VARNER MD Aug 28, 2024 21:22
[2024-08-29 00:39] VITALS: BP 96/50; PULSE 80; RESP 20; TEMP 97.9
[2024-08-29 04:19] VITALS: BP 103/56; PULSE 72; RESP 20; TEMP 97.8
[2024-08-29 05:50] LABS: BASOPHILS # (AUTO) 0.05 K/uL (0.00-0.20); BASOPHILS % (AUTO) 0.7 % (0.0-5.0); EOSINOPHILS # (AUTO) 0.38 K/uL (0.00-0.70); HEMATOCRIT 36.4 % (36-48); IMMATURE GRANULOCYTE ABSOLUTE 0.02 K/uL (0-1); LYMPHOCYTES # (AUTO) 1.5 K/uL (1.0-4.8); LYMPHOCYTES % (AUTO) 19.1 % (21.0-51.0); MEAN CORPUSCULAR HGB CONC 31.9 g/dL (32.0-36.0); MEAN CORPUSCULAR VOLUME 87.7 fL (79-99); MONOCYTES # (AUTO) 0.6 K/uL (0.1-1.0); MONOCYTES % (AUTO) 7.7 % (3.0-13.0); NEUTROPHILS # (AUTO) 5.2 K/uL (1.8-7.7); NEUTROPHILS % (AUTO) 67.2 % (40.0-77.0); PLATELET COUNT (AUTO) 190 K/uL (130-400); RED BLOOD CELL COUNT(AUTO) 4.15 MIL/uL (4.00-5.50); RED CELL DISTRIBUTION WIDTH 14.6 % (11.0-15.5); WHITE BLOOD COUNT (AUTO) 7.7 K/uL (4.8-10.8)
[2024-08-29 06:06] LABS: CREATININE 0.7 mg/dL (0.5-1.0); POTASSIUM 4.2 mmol/L (3.5-5.1)
[2024-08-29 08:00] VITALS: BP 140/76; PULSE 80; RESP 18; TEMP 97.9
[2024-08-29 08:07] VITALS: O2SAT 98
[2024-08-29] MEDS: BisaCODYL 10 MG SUPP.RECT RC SCH (08:07)
--- NOTE | 2024-08-29 09:22 | PN ---
GASTROENTEROLOGY PROGRESS NOTE Date of Visit: Aug 29, 2024 Time of Visit: 09:22 Events / Notes: [ ] Review of Systems: CONSTITUTIONAL: No malaise or change in sensation of wellbeing. ENMT: No rhinorrhea, otorrhea, sinus pain, ear ache. CARDIOVASCULAR: No angina, palpitations, orthopnea or paroxysmal dyspnea. RESPIRATORY: No SOB. GASTROINTESTINAL: No abdominal pain, nausea, vomiting, diarrhea, hematemesis, melena or change in the patient's habitual bowel movements consistency/number. GENITOURINARY: No dysuria, hematuria or change in bladder continence. MUSCULOSKELETAL: No new muscle pain or decrease in muscular strength. No new joint swelling, redness or tenderness. SKIN: No new rash. Physical Exam: GEN: Awake, alert, oriented in person, time and place, and in no acute distress. HEENT: No sinus tenderness. Tympanic membranes were not examined. No rhinorrhea. Oral pharyngeal mucosa is pink, moist and within normal limits. Neck is supple with no cervical lymphadenopathy, thyromegaly or JVD. CHEST: Inspection, palpation and percussion of the chest were unremarkable. Lung auscultation revealed normal breath sounds bilaterally. CARDIAC: PMI is within normal limits. Heart sounds are regular. Normal S1, S2. No gallop or murmur. ABD: Soft, non-tender and not distended. No peritoneal signs on palpation. No organomegaly. Normal bowel sounds. EXT: No cyanosis or clubbing. No edema. SKIN: Intact. No rashes. JOINTS: No evidence of synovitis or acute arthritis. NEURO: Alert and oriented to name, place and person. Cranial nerve examination is unremarkable. No focal motor deficits. Normal speech. Gait is normal. Strength is normal. Vital Signs (last 8hr) Date Time Temp Pulse Resp B/P (MAP) Pulse Ox O2 Delivery O2 Flow Rate FiO2 08/29/24 08:00 97.9 80 18 140/76 98 Room Air 21 08/29/24 04:19 97.9 72 20 103/56 95 Room Air Laboratory: [ ] Laboratory: Test 08/29/24 05:05 08/28/24 11:27 08/28/24 02:27 Range/Units White Blood Count 7.7 4.8-10.8 K/uL Red Blood Count 4.15 4.00-5.50 MIL/uL Hemoglobin 11.6 L 12.0-16.0 g/dL Hematocrit 36.4 36-48 % Mean Corpuscular Volume 87.7 79-99 fL Mean Corpuscular Hemoglobin 28.0 27.0-33.0 pg Mean Corpuscular Hemoglobin Concent 31.9 L 32.0-36.0 g/dL Red Cell Distribution Width 14.6 11.0-15.5 % Platelet Count 190 130-400 K/uL Mean Platelet Volume 11.4 H 7.5-10.5 fL Immature Granulocyte % (Auto) 0.3 0-1 % Neutrophils (%) (Auto) 67.2 40.0-77.0 % Lymphocytes (%) (Auto) 19.1 L 21.0-51.0 % Monocytes (%) (Auto) 7.7 3.0-13.0 % Eosinophils (%) (Auto) 5.0 0.0-8.0 % Basophils (%) (Auto) 0.7 0.0-5.0 % Neutrophils # (Auto) 5.2 1.8-7.7 K/uL Lymphocytes # (Auto) 1.5 1.0-4.8 K/uL Monocytes # (Auto) 0.6 0.1-1.0 K/uL Eosinophils # (Auto) 0.38 0.00-0.70 K/uL Basophils # (Auto) 0.05 0.00-0.20 K/uL Absolute Immature Granulocyte (auto 0.02 0-1 K/uL Nucleated Red Blood Cells 0.0 0.0-0.19 % Sodium Level 142 136-145 mmol/L Potassium Level 4.2 3.5-5.1 mmol/L Chloride Level 108 101-111 mmol/L Carbon Dioxide Level 28 21-32 mmol/L Blood Urea Nitrogen 14 7-18 mg/dL Creatinine 0.7 0.5-1.0 mg/dL Glomerular Filtration Rate Calc 103 >90 mL/min Random Glucose 92 70-105 mg/dL Total Calcium 8.7 8.5-10.1 mg/dL Urine Color COLORLESS YELLOW Urine Appearance CLEAR CLEAR Urine pH 6.0 5.0-8.0 Urine Specific [place] 1.011 1.001-1.031 Urine Protein 10 H NEGATIVE mg/dL Urine Glucose (UA) NEGATIVE NEGATIVE mg/dL Urine Ketones NEGATIVE NEGATIVE mg/dL Urine Occult Blood MODERATE H NEGATIVE Urine Nitrate NEGATIVE NEGATIVE Urine Bilirubin NEGATIVE NEGATIVE mg/dL Urine Urobilinogen 0.2 0.2-1.0 mg/dL Urine Leukocyte Esterase 250 H NEGATIVE May/uL Urine RBC 11-25 H 0-1 /HPF Urine WBC 26-50 H 0-1 /HPF Urine Squamous Epithelial Cells RARE 0-2 /HPF Urine Bacteria RARE None Seen /HPF Urine Yeast FEW None Seen /HPF Prothrombin Time 10.0 9.6-11.6 SEC Prothromb Time International Ratio 0.94 0.85-1.15 Activated Partial Thromboplast Time 27.8 26.3-35.5 SEC Hemoglobin A1c 6.1 H 4.0-6.0 % Estimated Average Glucose (eAG) 128 H 70-126 mg/dL Magnesium Level 1.80 1.80-2.40 mg/dL Total Bilirubin 0.3 0.2-1.0 mg/dL Direct Bilirubin 0.1 0.0-0.3 mg/dL Aspartate Amino Transf (AST/SGOT) 62 H 10-37 U/L Alanine Aminotransferase (ALT/SGPT) 44 12-78 U/L Alkaline Phosphatase 120 50-136 U/L Total Protein 7.0 6.0-8.3 g/dL Albumin 3.0 L 3.5-5.0 g/dL Human Chorionic Gonadotropin, Quant 4 0-5 mIU/mL Current Medications Medications (Trade) Dose Ordered Sig/Elsy Route PRN Reason Start Time Stop Time Status Last Admin Dose Admin Acetaminophen (TYLenol 325MG TAB) 650 mg Q4H PRN PO MILD PAIN (1-3) 08/28/24 04:30 09/27/24 04:29 08/29/24 08:11 650 MG Acetaminophen (TYLenol 325MG TAB) 650 mg Q6H PRN PO TEMPERATURE GREATER THAN 101.5 08/28/24 04:30 09/27/24 04:29 Bisacodyl (DulcoLAX) 10 mg DAILY RC 08/29/24 09:00 09/28/24 08:59 08/29/24 08:07 10 MG Ceftriaxone Sodium (ROCEphine 1G INJ) 1 gm Q24H IVPB 08/28/24 15:00 08/28/24 14:36 DC Docusate Sodium (COLace 100MG CAP) 100 mg BID PO 08/28/24 11:00 09/27/24 10:59 08/29/24 08:07 100 MG Famotidine (Pepcid 20mg Vial) 20 mg BID IV 08/28/24 09:00 09/27/24 08:59 08/29/24 08:07 20 MG Gabapentin (NEURontin 300 MG CAP) 300 mg TID PO 08/28/24 14:00 09/27/24 13:59 08/29/24 08:07 300 MG Ketorolac Tromethamine (toRADol) 15 mg Q6H PRN IV MODERATE PAIN (4-6) 08/28/24 11:00 09/02/24 10:59 08/28/24 11:12 15 MG Lactulose (Constulose 20gm/ 30ml Udcup) 20 gm BID PRN PO CONSTIPATION 08/28/24 11:00 09/27/24 10:59 08/28/24 11:12 20 GM Levofloxacin/ Dextrose (LEvaquIN 500 MG/ D5W 100 ML) 500 mg Q24H IV 08/28/24 15:30 09/07/24 15:29 08/28/24 16:26 500 MG Metoprolol Succinate (TopROL XL) 50 mg BID PO 08/28/24 21:00 09/27/24 20:59 08/29/24 08:08 50 MG Ondansetron HCl (zoFRAN 4MG INJ) 4 mg Q6H PRN IV NAUSEA/VOMITING 08/28/24 04:30 09/27/24 04:29 08/28/24 06:21 4 MG Sodium Chloride 1,000 ml @ 75 mls/hr [id number] IV 08/28/24 04:30 09/27/24 04:29 08/28/24 18:45 75 MLS/HR Trazodone HCl (DesyREL/OlepTRO) 50 mg HS PO 08/28/24 21:00 09/27/24 20:59 08/28/24 20:29 50 MG Diagnostics / Radiology: [COPY/PASTE HERE IF NO REPORTS PLEASE DELETE SECTION] Assessment: Constipation Plan: Daily miralax Enema and suppository as needed BROOKLYNN MUIR SKI TOPPER Aug 29, 2024 09:22
--- NOTE | 2024-08-29 10:41 | DS ---
Discharge Summary Hospital Course Summary: [age] year old female with past medical history of diabetes mellitus type 2, essential hypertension, achondroplasia, paraplegia, spinal injury was admitted for suprapubic catheter malfunction, fecal impaction and UTI. 08/29/2024 patient was found awake alert and oriented x3. She is passing gas and having bowel movements. Urologist reports technical issues with patient's catheter as it was externally and internally kinked. After adjusting, patient's catheter is flushing. Vital signs this morning are stable, she is afebrile, satting 98% on room air. CBC and BMP are unremarkable. Urine culture is pending, called [facility] lab and culture results are still pending. From medical standpoint patient is stable. We will discharge patient on Levaquin 500 mg p.o. daily x5 days. Advised patient we will follow up with microbiology lab for final cultures and reach out to her once cultures resulted for update. Patient agrees with plan. Also advised patient to follow up with PCP in 2-3 days for continued evaluation including repeat CBC, BMP and urinalysis. Follow up with patient's urologist in 1-2 weeks for continued evaluation. Patient verbalized understanding of instructions and discharge plan. Medications have been reconciled. Script has been sent to patient's pharmacy. [employer] Supervisor(s): Pit Hoist Operator Dr. Shankar Urologist Dr. Layne Assessment/Plan: ASSESSMENT: Suprapubic catheter malfunctioning POA corrected Fecal impaction POA improved Neurogenic bladder POA Paraplegia POA Hypertension POA Obesity POA PLAN: Medically stable for discharge Continue GI soft and advance as tolerated Continue IV fluids Follow a healthy diet Discharge Instructions: Okay to discharge home. Follow up with PCP in 2-3 days for continued evaluation including repeat CBC, BMP and urinalysis. Follow up with your urologist in one week for continued evaluation. Continue Levaquin 500 mg p.o. daily x5 days. This case was discussed with Dr. Basurto and above plan was formulated Home Medications: Reported Medications Gabapentin (Gabapentin) 100 Mg Capsule, 3 CAP PO TID for 30 Days, #90 CAP 0 Refills 08/28/24 Lactulose (Constulose) 10 Gram/15 Ml Solution, 10 GM PO BID PRN for CONSTIPATION, ML 08/28/24 Oxybutynin Chloride (Oxybutynin Chloride) 5 Mg Tablet, 1 TAB PO BID for urinary discomfort for 30 Days, #60 TAB 0 Refills 08/28/24 Lisinopril/Hydrochlorothiazide (Lisinopril-Hctz 20-25 mg Tab) 20 Mg-25 Mg Tablet, 1 TAB PO DAILY, TAB 08/28/24 Ferrous Sulfate (Ferrous Sulfate) 325 Mg (65 Mg Iron) Ectab, 325 MG PO DAILY, TAB.EC 08/28/24 Metoprolol Succinate (Metoprolol Succinate) 50 Mg Tab.er.24h, 50 MG PO BID, TAB 04/28/24 Trazodone HCl (Trazodone HCl) 50 Mg Tablet, 50 MG PO HS for SLEEP, TAB 06/16/22 Discontinued Reported Medications Gabapentin (Gabapentin) 600 Mg Tablet, 300 MG PO TID, TAB 06/16/22 Time spent arranging discharge: 31-60 minutes BHAVESH COSBYP Aug 29, 2024 10:41
[2024-08-29] MEDS ORDERED: LEVO-70 PO (10:46)
[2024-08-29 11:59] VITALS: BP 122/74; PULSE 75; RESP 18; TEMP 98
--- NOTE | 2024-08-29 12:40 | NUR ---
DISCHARGE PERIPHERAL IV DISCONTINUED DISCHARGE EDUCATION AND INSTRUCTIONS PACKET GIVEN TO PATIENT PATIENT AND FAMILY AWARE OF FOLLOW UP TIMEFRAME PATIENT AND FAMILY AWARE OF NEW PRESCRIPTIONS AND TO BUTCHER CHICKEN AND FISH PRESCRIPTION AT PREFERRED PHARMACY ALL QUESTIONS ANSWERED.
== END 2024-08-29 13:00 | disposition home or self-care (01) | DRG 466 ==
LOC: EDH 23:38 → EDHIP 23:39 → 3CH 08-28 05:05
PROVIDERS: ADMIT Internal Medicine; ATTEND Internal Medicine
DX: T83.018A Breakdown (mechanical) of other urinary catheter, initial encounter (principal); G82.20 Paraplegia, unspecified; K56.41 Fecal impaction; N31.9 Neuromuscular dysfunction of bladder, unspecified; I10 Essential (primary) hypertension; E66.9 Obesity, unspecified; E11.9 Type 2 diabetes mellitus without complications; K57.30 Diverticulosis of large intestine without perforation or abscess without bleeding; Y73.2 Prosthetic and other implants, materials and accessory gastroenterology and urology devices associated with adverse incidents; Z82.49 Family history of ischemic heart disease and other diseases of the circulatory system; Z82.0 Family history of epilepsy and other diseases of the nervous system; Z74.01 Bed confinement status; Z83.3 Family history of diabetes mellitus; Z88.8 Allergy status to other drugs, medicaments and biological substances; Z88.6 Allergy status to analgesic agent; Z79.4 Long term (current) use of insulin; Z86.0100 Personal history of colon polyps, unspecified; Z79.899 Other long term (current) drug therapy; Z68.41 Body mass index [BMI] 40.0-44.9, adult
CPT/HCPCS: 36415; 74176; 80048; 80076; 81001; 83036; 83735; 84702; 85025; 85610; 85730; 87086; G0378; J1885; J1956; J2270; J2405; J3490; J7030